=== PATIENT | female | born 1960 | race Caucasian/White ===

== ENCOUNTER 2022-01-31 11:02 | Emergency (ER) | payer OTHER ==
[2022-01-31] MEDS ORDERED: BACTROBAN OINT22 GM EXT (15:36)
[2022-01-31] MEDS ORDERED: IBUPROFEN600 MG PO (15:36)
== END 2022-01-31 16:00 | disposition home or self-care (01) ==
LOC: ER1 11:02
DX: S63.280A Dislocation of proximal interphalangeal joint of right index finger, initial encounter (principal); S61.210A Laceration without foreign body of right index finger without damage to nail, initial encounter; Z79.82 Long term (current) use of aspirin; W01.0XXA Fall on same level from slipping, tripping and stumbling without subsequent striking against object, initial encounter; Y92.009 Unspecified place in unspecified non-institutional (private) residence as the place of occurrence of the external cause
CPT/HCPCS: 12001; 26770; 73030; 73130; 90471; 90715; 99283